=== PATIENT | female | born 1975 | race Caucasian/White ===

== ENCOUNTER 2023-02-06 08:21 | Day surgery (SDC) | payer OTHER ==
[~2023-02-06] VITALS: Ht 165.1 cm; Wt 66.7 kg
[~2023-02-06 08:21] MED LIST: AMLO1TAB24; EXCETAB32 PO; GABA-282; HYDR-3713 PO; PROGESTERONE CREAM TOP
[2023-02-06] MEDS ORDERED: ceFAZolin SOD 2 GM in IV 1 EA IV ONE (08:55)
[2023-02-06] MEDS ORDERED: LR 1,000 ML IV SCH ×2 (09:00→11:15)
[2023-02-06] MEDS ORDERED: ROPIvacaine 0.5% 30ML VIAL PN ONE (09:20)
[2023-02-06] MEDS ORDERED: LIDOCAINE 1% SDV 5ML VIAL PN ONE (09:20)
[2023-02-06] MEDS: MIDAZOLAM INJ 2MG/2ML VIAL IV PRN ×2 (09:33→09:34)
[2023-02-06] MEDS: fentaNYL 100 MCG/2 ML INJECTION IV PRN ×2 (09:33→09:34)
[2023-02-06] MEDS ORDERED: propofoL 200 MG/20 ML VIAL As Ordered ONE (09:54)
[2023-02-06] MEDS ORDERED: LIDOCAINE 2% 100MG/5ML SDV (FOR ANES.) As Ordered ONE (09:54)
[2023-02-06] MEDS ORDERED: MIDAZOLAM INJ 2MG/2ML VIAL As Ordered ONE (09:55)
[2023-02-06] MEDS ORDERED: fentaNYL 250 MCG/5 ML INJECTION As Ordered ONE (09:55)
[2023-02-06] MEDS ORDERED: BACITRACIN OINTMENT 30GM TUBE As Ordered ONE (09:56)
[2023-02-06] MEDS ORDERED: SCOPOLAMINE 1MG TRANSDERMAL PATCH TOP ONE (10:00)
[2023-02-06] MEDS ORDERED: SCOPOLAMINE 1MG TRANSDERMAL PATCH As Ordered ONE (10:04)
[2023-02-06] MEDS ORDERED: ONDANSETRON 4MG 2ML VIAL As Ordered ONE (11:08)
[2023-02-06] MEDS ORDERED: KETOROLAC 60MG 2ML VIAL As Ordered ONE (11:08)
[2023-02-06] MEDS ORDERED: fentaNYL 100 MCG/2 ML INJECTION IV PRN (11:15)
[2023-02-06] MEDS ORDERED: ONDANSETRON 4MG 2ML VIAL IV PRN (11:15)
[2023-02-06] MEDS ORDERED: oxyCODONE 5MG TAB PO PRN (11:15)
[2023-02-06] MEDS ORDERED: HYDROMORPHONE HCL 0.5 MG/ 0.5 ML SYRINGE IV PRN (11:15)
[2023-02-06] MEDS ORDERED: PERC5TAB12 PO (11:35)
[2023-02-06] MEDS ORDERED: METOCLOPRAMIDE INJ 10MG/2ML VIAL IV PRN (11:50)
[2023-02-06 12:53] VITALS: BP 119/67
== END 2023-02-06 13:00 | disposition home or self-care (01) ==
LOC: M SDC 08:21
PROVIDERS: ATTEND Orthopaedic Surgery Hand Surgery
DX: S52.551A Other extraarticular fracture of lower end of right radius, initial encounter for closed fracture (principal); W19.XXXA Unspecified fall, initial encounter; Y92.511 Restaurant or cafe as the place of occurrence of the external cause; Y93.01 Activity, walking, marching and hiking; Y99.0 Civilian activity done for income or pay; I10 Essential (primary) hypertension; Z79.899 Other long term (current) drug therapy
CPT/HCPCS: 25607; 76000; C1713; J0690; J1100; J1885; J2250; J2405; J2765; J2795; J3010

== ENCOUNTER → 2023-02-13 | Outpatient (CLI) | payer OTHER ==
[~2023-02-13] MED LIST changes: +PERC5TAB12 PO
== END ==
LOC: M SOG 11:04
PROVIDERS: ATTEND Physician Assistant
DX: S52.531A Colles' fracture of right radius, initial encounter for closed fracture (principal); Z47.89 Encounter for other orthopedic aftercare; Z96.698 Presence of other orthopedic joint implants

== ENCOUNTER → 2023-03-06 | Outpatient (CLI) | payer OTHER | LOC: M SOG 08:52 | PROVIDERS: ATTEND Physician Assistant | DX: S52.501D Unspecified fracture of the lower end of right radius, subsequent encounter for closed fracture with routine healing (principal) ==

== ENCOUNTER → 2023-05-01 | Outpatient (CLI) | payer OTHER | LOC: M SOG 08:32 | PROVIDERS: ATTEND Physician Assistant | DX: S52.501D Unspecified fracture of the lower end of right radius, subsequent encounter for closed fracture with routine healing (principal); W18.30XD Fall on same level, unspecified, subsequent encounter ==